=== PATIENT | male | born 1960 | race Caucasian/White ===

== ENCOUNTER 2016-04-26 12:28 | Inpatient (IN) | payer OTHER ==
[~2016-04-26] VITALS: Ht 177.8 cm; Wt 84.0 kg
[~2016-04-26 12:28] MED LIST: DEPAKOTE ER500 MG PO; RISPERDAL2 MG PO; RISPERDAL3 MG PO; ZYPREXA2.5 MG PO; Zoloft PO
[2016-04-26 13:02] LABS: ADD MIUA? NO; BILIRUBIN NEGATIVE; BLOOD NEGATIVE; COLOR YELLOW ((YELLOW)); GLUCOSE (STRIP) NEGATIVE; KETONES NEGATIVE; LEUKOCYTES NEGATIVE; NITRITE NEGATIVE; PROTEIN (STRIP) NEGATIVE; SPECIFIC GRAVITY 1.008 (1.000-1.030); UCUL ADDED? NO; UROBILINOGEN 0.2 MG/DL (0.2-1.0)
[2016-04-26 13:03] LABS: HEMATOCRIT 43.5 % (38.0-50.0); MCH 27.7 PG (29.0-34.0); MCHC 33.3 G/DL (30.0-36.0); MEAN PLAT.VOLUME 10.6 uM^3 (9.0-12.4); PLATELET COUNT 265 K/uL (156-360); RBC DIS.WIDTH-CV 14.1 % (11.8-14.6); RBC DIS.WIDTH-SD 42.4 % (39-53); RED BLOOD COUNT 5.24 M/uL (4.00-5.50); WHITE BLOOD COUNT 18.5 K/uL (4.1-10.2)
[2016-04-26 13:11] LABS: CHLORIDE 101 mEq/L (99-109); POTASSIUM 4.7 mEq/L (3.7-5.4); SODIUM 137 mEq/L (136-147)
[2016-04-26 13:13] LABS: GLUCOSE 104 mg/dL (70-99)
[2016-04-26 13:14] LABS: ANION GAP 12 MEQ/L (2-14)
[2016-04-26 13:15] LABS: TOTAL BILIRUBIN 0.4 mg/dL (0.0-1.0)
[2016-04-26 13:16] LABS: SERUM ETHYL ALCOHOL < 10 mg/dL
[2016-04-26 13:17] LABS: ALKALINE PHOSPHATASE 72 IU/L (3-129); GFR ESTIMATE (CALCULATED) > 59 mL/min/
[2016-04-26 13:18] LABS: UREA NITROGEN (BUN) 12 mg/dL (9-23)
[2016-04-26 13:22] LABS: AMPHETAMINE NEGATIVE (500 ng/mL); BARBITURATES NEGATIVE (200 ng/mL); BENZODIAZEPINES NEGATIVE (150 ng/mL); COCAINE NEGATIVE (150 ng/mL); INTERNAL CONTROLS VALID? YES; METHADONE NEGATIVE (200 ng/mL); METHAMPHETAMINE NEGATIVE (500 ng/mL); OPIATES (MORPHINE) NEGATIVE (100 ng/mL); OXYCODONE NEGATIVE (100 ng/mL); PHENCYCLIDINE NEGATIVE (25 ng/mL); PROPOXYPHENE NEGATIVE (300 ng/mL); THC CANNABINOIDS NEGATIVE (50 ng/mL); TRICYCLIC ANTIDEPRESSANTS NEGATIVE (300 ng/mL)
[2016-04-26 15:50] VITALS: BP 126/59
[2016-04-26 22:22] VITALS: BP 130/89
[2016-04-27 13:05] VITALS: BP 142/88
[2016-04-27 15:29] VITALS: BP 145/80
[2016-04-28 07:49] VITALS: BP 140/74
[2016-04-28 15:23] VITALS: BP 130/67
[2016-04-29 07:56] VITALS: BP 132/71
[2016-04-29 16:05] VITALS: BP 109/53
[2016-04-30 07:45] VITALS: BP 122/64
[2016-04-30 15:32] VITALS: BP 135/68
[2016-05-01 07:47] VITALS: BP 97/50
[2016-05-01 15:33] VITALS: BP 142/76
[2016-05-02 08:02] VITALS: BP 124/55
[2016-05-02 15:36] VITALS: BP 126/60
[2016-05-03 07:51] VITALS: BP 124/64
[2016-05-03] MEDS ORDERED: RISPERDAL3 MG PO (09:18)
== END 2016-05-03 13:26 | disposition home or self-care (01) | DRG 885 ==
LOC: EME 12:28 → 1WEST 13:24 → EDOF 13:24 → 1WEST 15:49
PROVIDERS: Emergency Medicine
DX: F25.0 Schizoaffective disorder, bipolar type (principal); Z59.0 Homelessness; Z91.19 Patient's noncompliance with other medical treatment and regimen
CPT/HCPCS: 80053; 81003; 85027; 90837; 97150 GO; 97165 GO; 99281; 99285; G0480; J1630; J2060